=== PATIENT | female | born 1980 | race Caucasian/White ===

== ENCOUNTER 2016-05-22 20:06 | Emergency (ER) | payer MEDICARE ==
[2014-03-21 10:05] VITALS: BMI 29.4
[~2016-05-22 20:06] MED LIST: CARAFATE1 G PO; CHANTIX 1 MG TAB1 MG PO; CLONAZEPAM2 MG/TAB PO; DURAGESIC1 PATCH .7 TRANSDERM; HYDROCODONE-APA1 TAB OR; LAMICTAL100 MG PO; MIRALAX17 GM PO; MUCINEX DM ER1 EAC1 PO; NICODERM C1 PATCH .3 TRANSDERM; NORCO 10/325 TA1 TA1 PO; PERCOCET 10/3251 TA1 PO; PROTONIX40 MG PO; SEASONIQUE1 BLIST PA PO; SOMA350 MG PO; STERAPRED 5MG 125 MG OR; TUSSIONEX 5 ML S5 ML PO; XANAX1 MG PO; YASMIN 28 TABLE1 TAB PO
== END 2016-05-22 20:16 | disposition left against medical advice (07) ==
LOC: D.ER 20:06
DX: Z02.9 Encounter for administrative examinations, unspecified (principal)

== ENCOUNTER 2016-10-28 23:35 | Emergency (ER) | payer MEDICARE, MEDICAID ==
[2014-03-21 10:05] VITALS: BMI 29.4
[2016-10-28 23:52] LABS: HEMATOCRIT 43.9 % (36.0-48.0); HEMOGLOBIN 14.6 g/dL (12-16); LYMPHOCYTES 32.4 % (15-50); MCH 27.4 pg (26.0-34.0); MCHC 33.3 g/dL (31.0-37.0); MCV 82.5 fL (80.0-100.0); MEAN PLATELET VOLUME 9.8 fL (7.4-10.4); PLATELET COUNT 292 10x3/uL (130-400); RBC 5.32 10x6/uL (4.00-5.40); RDW 14.7 % (11.5-14.5); WBC 10.4 10x3/uL (4.8-10.8)
[2016-10-29 00:17] LABS: INR 1.05 (0.85-1.17); PROTIME 13.6 SECONDS (11.6-15.0)
[2016-10-29 00:23] LABS: ALBUMIN 4.1 g/dL (3.4-5.0); ALKALINE PHOSPHATASE 97 U/L (46-116); ALT (SGPT) 35 U/L (10-68); BILIRUBIN - TOTAL 0.75 mg/dL (0.2-1.3); CALC OSMOLALITY 276 mosm/kg (275-300); CALCIUM 9.4 mg/dL (8.5-10.1); CARBON DIOXIDE 22.6 mmol/L (21.0-32.0); CHLORIDE - SERUM 105 mmol/L (98-107); CREATININE - SERUM 0.9 mg/dL (0.6-1.3); GLUCOSE 98 mg/dL (74-106); POTASSIUM - SERUM 4.1 mmol/L (3.5-5.1); PROTEIN - SERUM 7.7 g/dL (6.4-8.2); SODIUM 139 mmol/L (136-145); UREA NITROGEN 11 mg/dL (7-18); eGFR NON AFRICAN AMERICAN 76 mL/min (90-120)
[2016-10-29 00:28] LABS: APTT 26.9 SECONDS (22.8-39.4)
== END 2016-10-29 02:05 | disposition left against medical advice (07) ==
LOC: D.ER 23:35
PROVIDERS: Emergency Medicine
DX: R07.9 Chest pain, unspecified (principal); V89.2XXA Person injured in unspecified motor-vehicle accident, traffic, initial encounter; Y93.89 Activity, other specified; Y92.89 Other specified places as the place of occurrence of the external cause; I95.9 Hypotension, unspecified; F43.10 Post-traumatic stress disorder, unspecified

== ENCOUNTER 2017-03-03 17:59 | Emergency (ER) | payer MEDICARE, MEDICAID ==
[2014-03-21 10:05] VITALS: BMI 29.4
== END 2017-03-03 20:55 | disposition home or self-care (01) ==
LOC: D.ER 17:59
DX: J02.9 Acute pharyngitis, unspecified (principal); R05 Cough; M79.1 Myalgia; R53.83 Other fatigue; R22.43 Localized swelling, mass and lump, lower limb, bilateral; M79.662 Pain in left lower leg; M79.661 Pain in right lower leg

== ENCOUNTER 2017-10-25 09:59 | Emergency (ER) | payer MEDICARE ==
[~2017-10-25] VITALS: Ht 165.1 cm; Wt 90.9 kg
[2017-10-25 10:20] VITALS: Ht 165.1 cm; Wt 90.9 kg
[2017-10-25 10:48] LABS: HEMATOCRIT 41.4 % (36.0-48.0); HEMOGLOBIN 13.9 g/dL (12-16); MCH 28.5 pg (26.0-34.0); MCHC 33.6 g/dL (31.0-37.0); MEAN PLATELET VOLUME 10.3 fL (7.4-10.4); PLATELET COUNT 379 10x3/uL (130-400); RBC 4.87 10x6/uL (4.00-5.40); RDW 13.2 % (11.5-14.5); WBC 20.5 10x3/uL (4.8-10.8)
[2017-10-25 11:00] LABS: ALBUMIN 4.2 g/dL (3.4-5.0); ALKALINE PHOSPHATASE 108 U/L (46-116); ALT (SGPT) 29 U/L (10-68); BILIRUBIN - TOTAL 0.93 mg/dL (0.2-1.3); CALC OSMOLALITY 294 mosm/kg (275-300); CALCIUM 9.1 mg/dL (8.5-10.1); CARBON DIOXIDE 26.8 mmol/L (21.0-32.0); CHLORIDE - SERUM 109 mmol/L (98-107); CREATININE - SERUM 0.9 mg/dL (0.6-1.3); GLUCOSE 93 mg/dL (74-106); LIPASE 57 U/L (73-393); POTASSIUM - SERUM 3.1 mmol/L (3.5-5.1); PROTEIN - SERUM 8.2 g/dL (6.4-8.2); SODIUM 148 mmol/L (136-145); UREA NITROGEN 14 mg/dL (7-18); eGFR NON AFRICAN AMERICAN 76 mL/min (90-120)
[2017-10-25 11:13] LABS: BASOPHILS 1 % (0-2); LYMPHOCYTES 19 % (15-50); MONOCYTES 5 % (2-11); NEUTROPHILS 73 % (40-80); PLATELET ESTIMATE NORMAL
[2017-10-25 12:42] LABS: HCG URINE NEGATIVE (NEGATIVE)
[2017-10-25 12:43] LABS: APPEARANCE CLEAR (CLEAR); BILIRUBIN NEGATIVE (NEGATIVE); COLOR DK YELLOW (YELLOW); GLUCOSE NEGATIVE (NEGATIVE); KETONE SMALL mg/dL (NEGATIVE); NITRITE NEGATIVE (NEGATIVE); PROTEIN NEGATIVE (NEGATIVE); UROBILINOGEN NORMAL (NORMAL)
[2017-10-25 12:49] LABS: UDS - AMPHET POSITIVE QUAL (NEGATIVE); UDS - BARB NEGATIVE QUAL (NEGATIVE); UDS - BENZO NEGATIVE QUAL (NEGATIVE); UDS - COCAINE NEGATIVE QUAL (NEGATIVE); UDS - OPIATE NEGATIVE QUAL (NEGATIVE); UDS - PCP NEGATIVE QUAL (NEGATIVE); UDS - THC NEGATIVE QUAL (NEGATIVE)
[2017-10-26 01:32] VITALS: BP 110/61
== END 2017-10-26 01:10 | disposition home or self-care (01) ==
LOC: D.ER 09:59
PROVIDERS: Family Medicine
DX: F15.10 Other stimulant abuse, uncomplicated (principal)

== ENCOUNTER 2018-03-30 07:15 | Emergency (ER) | payer MEDICARE ==
[2018-03-30 07:21] VITALS: Ht 165.1 cm
[2018-03-30 08:15] LABS: BASOPHILS 0.3 % (0-2); EOSINOPHILS 1.6 % (0-7); HEMATOCRIT 38.2 % (36.0-48.0); HEMOGLOBIN 12.6 g/dL (12-16); IMMATURE GRANULOCYTES 0.5 % (0-5); LYMPHOCYTES 11.7 % (15-50); MCH 28.1 pg (26.0-34.0); MCV 85.3 fL (80.0-100.0); MEAN PLATELET VOLUME 10.2 fL (7.4-10.4); MONOCYTES 9.3 % (2-11); NEUTROPHILS 76.6 % (40-80); RBC 4.48 10x6/uL (4.00-5.40); RDW 13.2 % (11.5-14.5); WBC 11.5 10x3/uL (4.8-10.8)
[2018-03-30 08:24] LABS: PLATELET COUNT 286 10x3/uL (130-400)
[2018-03-30 08:26] LABS: APPEARANCE HAZY (CLEAR); BACTERIA FEW /hpf (NONE SEEN); BILIRUBIN NEGATIVE (NEGATIVE); COLOR YELLOW (YELLOW); EPITHELIAL CELLS OCC /hpf (0-5); GLUCOSE NEGATIVE (NEGATIVE); KETONE NEGATIVE (NEGATIVE); NITRITE NEGATIVE (NEGATIVE); PROTEIN NEGATIVE (NEGATIVE); UROBILINOGEN NORMAL (NORMAL); WHITE CELLS - URINE OCC /hpf (0-5)
[2018-03-30 08:27] LABS: AMORPHOUS SEDIMENT <1+ /lpf (NONE SEEN); MUCUS <1+ /lpf (NONE SEEN); RED CELLS - URINE 0-5 /hpf (0-5)
[2018-03-30 09:27] LABS: GLUCOSE - CSF 70 MG/DL (40-75); PROTEIN - CSF 41 MG/DL (12-60)
[2018-03-30 09:35] LABS: APPEARANCE - CSF CLEAR; RBC - CSF 1 cmm (0-0)
[2018-03-30 09:49] LABS: ALBUMIN 2.6 g/dL (3.4-5.0); ALKALINE PHOSPHATASE 121 U/L (46-116); ALT (SGPT) 67 U/L (10-68); BILIRUBIN - TOTAL 0.27 mg/dL (0.2-1.3); CALC OSMOLALITY 270 mosm/kg (275-300); CALCIUM 8.5 mg/dL (8.5-10.1); CARBON DIOXIDE 30.1 mmol/L (21.0-32.0); CHLORIDE - SERUM 98 mmol/L (98-107); CREATININE - SERUM 0.8 mg/dL (0.6-1.3); GLUCOSE 119 mg/dL (74-106); POTASSIUM - SERUM 4.2 mmol/L (3.5-5.1); PROTEIN - SERUM 6.2 g/dL (6.4-8.2); SODIUM 135 mmol/L (136-145); UREA NITROGEN 12 mg/dL (7-18); eGFR NON AFRICAN AMERICAN 86 mL/min (90-120)
[2018-03-30] MEDS ORDERED: NORCO 7.5/325 T1 TA1 PO (10:23)
[2018-03-30] MEDS ORDERED: PREDNISONE20 MG PO (10:23)
[2018-03-30 10:37] LABS: UDS - AMPHET POSITIVE QUAL (NEGATIVE); UDS - BARB NEGATIVE QUAL (NEGATIVE); UDS - BENZO NEGATIVE QUAL (NEGATIVE); UDS - COCAINE NEGATIVE QUAL (NEGATIVE); UDS - OPIATE POSITIVE QUAL (NEGATIVE); UDS - PCP NEGATIVE QUAL (NEGATIVE); UDS - THC NEGATIVE QUAL (NEGATIVE)
[2018-03-30 10:46] VITALS: BP 120/82
== END 2018-03-30 10:48 | disposition home or self-care (01) ==
LOC: D.ER 07:15
PROVIDERS: Emergency Medicine
DX: R50.9 Fever, unspecified (principal); M32.9 Systemic lupus erythematosus, unspecified; F17.200 Nicotine dependence, unspecified, uncomplicated

== ENCOUNTER 2018-07-26 04:43 | Emergency (ER) | payer MEDICARE ==
[~2018-07-26] VITALS: Ht 165.1 cm; Wt 90.9 kg
[~2018-07-26 04:43] MED LIST changes: +NORCO 7.5/325 T1 TA1 PO; +PREDNISONE20 MG PO
[2018-07-26 04:47] VITALS: BP 179/89; Ht 165.1 cm; Wt 90.9 kg
[2018-07-26 05:10] LABS: APPEARANCE CLEAR (CLEAR); BILIRUBIN NEGATIVE (NEGATIVE); COLOR YELLOW (YELLOW); GLUCOSE NEGATIVE (NEGATIVE); KETONE NEGATIVE (NEGATIVE); NITRITE NEGATIVE (NEGATIVE); PROTEIN NEGATIVE (NEGATIVE); SPECIFIC GRAVITY 1.025 (1.005-1.020); UROBILINOGEN NORMAL (NORMAL)
[2018-07-26 05:11] LABS: HCG URINE NEGATIVE (NEGATIVE)
[2018-07-26 05:17] LABS: UDS - AMPHET POSITIVE QUAL (NEGATIVE); UDS - BARB NEGATIVE QUAL (NEGATIVE); UDS - BENZO NEGATIVE QUAL (NEGATIVE); UDS - COCAINE NEGATIVE QUAL (NEGATIVE); UDS - OPIATE NEGATIVE QUAL (NEGATIVE); UDS - PCP NEGATIVE QUAL (NEGATIVE); UDS - THC NEGATIVE QUAL (NEGATIVE)
[2018-07-26 05:21] LABS: BASOPHILS 0.4 % (0-2); EOSINOPHILS 2.3 % (0-7); HEMATOCRIT 39.9 % (36.0-48.0); HEMOGLOBIN 13.1 g/dL (12-16); IMMATURE GRANULOCYTES 0.5 % (0-5); LYMPHOCYTES 22.1 % (15-50); MCH 27.5 pg (26.0-34.0); MCHC 32.8 g/dL (31.0-37.0); MCV 83.8 fL (80.0-100.0); MEAN PLATELET VOLUME 9.4 fL (7.4-10.4); MONOCYTES 9.5 % (2-11); NEUTROPHILS 65.2 % (40-80); PLATELET COUNT 304 10x3/uL (130-400); RBC 4.76 10x6/uL (4.00-5.40); RDW 14.3 % (11.5-14.5); WBC 14.1 10x3/uL (4.8-10.8)
[2018-07-26 05:38] LABS: ALBUMIN 3.4 g/dL (3.4-5.0); ALKALINE PHOSPHATASE 113 U/L (46-116); ALT (SGPT) 28 U/L (10-68); BILIRUBIN - TOTAL 0.27 mg/dL (0.2-1.3); CALC OSMOLALITY 285 mosm/kg (275-300); CALCIUM 8.4 mg/dL (8.5-10.1); CHLORIDE - SERUM 107 mmol/L (98-107); CREATININE - SERUM 0.9 mg/dL (0.6-1.3); GLUCOSE 106 mg/dL (74-106); MAGNESIUM - SERUM 1.9 mg/dL (1.8-2.4); POTASSIUM - SERUM 3.9 mmol/L (3.5-5.1); PROTEIN - SERUM 7.2 g/dL (6.4-8.2); SODIUM 142 mmol/L (136-145); UREA NITROGEN 20 mg/dL (7-18); eGFR NON AFRICAN AMERICAN 75 mL/min (90-120)
== END 2018-07-26 13:12 ==
LOC: D.ER 04:43
PROVIDERS: Family Medicine
DX: F15.129 Other stimulant abuse with intoxication, unspecified (principal)

== ENCOUNTER 2020-07-23 16:14 | Emergency (ER) | payer MEDICARE ==
[~2020-07-23] VITALS: Ht 165.1 cm; Wt 93.2 kg
[2020-07-23 16:20] VITALS: Ht 165.1 cm; Wt 93.2 kg
[2020-07-23 18:06] VITALS: BP 130/85
== END 2020-07-23 19:41 | disposition left against medical advice (07) ==
LOC: D.ER 16:14
DX: M25.511 Pain in right shoulder (principal); R07.81 Pleurodynia; Z53.21 Procedure and treatment not carried out due to patient leaving prior to being seen by health care provider